=== PATIENT | female | born 1985 | race Two or more races ===

== ENCOUNTER 2019-09-24 15:19 | Emergency (ER) | payer MEDICAID, OTHER ==
[~2019-09-24] VITALS: Ht 152.4 cm; Wt 72.6 kg
[2019-09-24 16:18] LABS: Urine Bacteria FEW /hpf (None Seen); Urine Blood Negative /uL (Negative); Urine Mucus FEW (None Seen); Urine Specific Gravity 1.033 (1.001-1.035); Urine WBC 14 /hpf (0 - 5)
[2019-09-24] MEDS ORDERED: SODIUM CHLORIDE 0.9% 1,000 ML IVB ONE (20:55)
[2019-09-24] MEDS ORDERED: PROMETHAZINE HCL 25 MG/ML 1ML IV ONE (21:00)
[2019-09-24 22:03] LABS: Basophils # (auto) 0 uL; Basophils % (auto) 0.1 % (0.0-2.0); Eosinophils # (auto) 0 uL; Eosinophils % (auto) 0.1 % (0.0-7.0); Hematocrit 41.6 % (36.0-46.0); Hemoglobin 14.2 g/dL (12.2-16.2); Lymphocytes # (auto) 0.7 uL; Lymphocytes % (auto) 9.2 % (10.0-50.0); Mean Corpuscular Hgb Conc. 34.2 g/dL (32.0-36.0); Mean Corpuscular Volume 90.5 fL (80.0-100.0); Monocytes # (auto) 0.4 uL; Monocytes % (auto) 5.1 % (0.0-12.0); Neutrophils # (auto) 6.6 uL; Neutrophils % (auto) 85.5 % (37.0-80.0); Platelet Count (auto) 199 10^3/uL (140-450); Red Cell Distribution Width 13.2 % (11.8-14.3); White Blood Cell 7.8 10^3/uL (4.4-10.8)
[2019-09-24 22:19] LABS: Albumin 3.6 g/dL (3.4-5.0); Calcium 8.7 mg/dL (8.5-10.1); Potassium 3.6 mmol/L (3.5-5.1)
[2019-09-24 22:24] LABS: BUN/Creatinine Ratio 19.2; Bilirubin, Total 0.6 mg/dL (0.2-1.0); Total Protein 7.8 g/dL (6.4-8.2)
[2019-09-25 00:46] VITALS: BP 102/63
== END 2019-09-25 01:35 | disposition home or self-care (01) ==
LOC: ER 15:23
DX: O21.8 Other vomiting complicating pregnancy (principal); O23.41 Unspecified infection of urinary tract in pregnancy, first trimester; E78.5 Hyperlipidemia, unspecified; Z3A.09 9 weeks gestation of pregnancy
CPT/HCPCS: 36415; 76801; 80053; 81001; 84702; 85025; 96361; 96374; 99284; J2550; J7030

== ENCOUNTER 2020-03-13 16:55 | Observation (INO) | payer MEDICAID ==
[2020-03-13] MEDS ORDERED: PRENTAB40 PO (17:20)
[2020-03-13] MEDS: TERBUTALINE SULFATE 1 MG/ML 1ML VIAL SC SCH ×3 (17:50→19:33)
[2020-03-13] MEDS ORDERED: NIFEdipine 10 MG CAP PO ONE (19:30)
== END 2020-03-13 21:15 | disposition home or self-care (01) | DRG 566 ==
LOC: LDRP 16:55
PROVIDERS: ADMIT Obstetrics & Gynecology; ATTEND Obstetrics & Gynecology
DX: O26.893 Other specified pregnancy related conditions, third trimester (principal); M54.9 Dorsalgia, unspecified; R10.30 Lower abdominal pain, unspecified; Z3A.34 34 weeks gestation of pregnancy
CPT/HCPCS: 59025; 76815; 76817; 81002; 94760; 96372; G0378; J3105

== ENCOUNTER 2020-04-14 10:27 | Observation (INO) | payer MEDICAID ==
[~2020-04-14 10:27] MED LIST: PRENTAB40 PO
== END 2020-04-14 11:21 | disposition home or self-care (01) | DRG 566 ==
LOC: LDRP 10:27 → UNDODISOB 10:45
PROVIDERS: ADMIT Specialist; ATTEND Specialist
DX: O26.893 Other specified pregnancy related conditions, third trimester (principal); M79.606 Pain in leg, unspecified; R10.2 Pelvic and perineal pain; Z3A.38 38 weeks gestation of pregnancy
CPT/HCPCS: 59025; 81002; G0378

== ENCOUNTER 2020-04-20 22:41 | Inpatient (IN) | payer MEDICAID ==
[~2020-04-20] VITALS: Ht 157.5 cm; Wt 78.0 kg
[2020-04-20] MEDS ORDERED: LACTATED RINGER'S 1,000 ML IV SCH (22:51)
[2020-04-20] MEDS ORDERED: LACT. RINGERS/OXYTOCIN 20UNITS 1,000 ML IV SCH (22:51)
[2020-04-20] MEDS ORDERED: DERMOPLAST 60ML BOTTLE TOP PRN (23:00)
[2020-04-20] MEDS ORDERED: PHISODERM TOP SOLN 240ML BTL TOP PRN (23:00)
[2020-04-20] MEDS ORDERED: WITCH HAZEL-GLYCERIN PAD TOP PRN (23:00)
[2020-04-20] MEDS ORDERED: LIDOCAINE 1% (LOCAL ANESTH.) PF 5ml SDV IJ ONE (23:00)
[2020-04-20 23:36] LABS: Basophils # (auto) 0 10 ^3/uL (0-0.2); Basophils % (auto) 0.2 % (0.0-2.0); Eosinophils # (auto) 0 10 ^3/uL (0-0.8); Eosinophils % (auto) 0.5 % (0.0-7.0); Hematocrit 39.2 % (36.0-46.0); Hemoglobin 13.2 g/dL (12.2-16.2); Lymphocytes # (auto) 1.5 10 ^3/uL (0.4-5.4); Lymphocytes % (auto) 18.1 % (10.0-50.0); Mean Corpuscular Hemoglobin 31.5 pg (28.0-32.0); Mean Corpuscular Hgb Conc. 33.8 g/dL (32.0-36.0); Mean Corpuscular Volume 93.2 fL (80.0-100.0); Monocytes # (auto) 0.6 10 ^3/uL (0-1.3); Monocytes % (auto) 7.7 % (0.0-12.0); Neutrophils # (auto) 6.2 10 ^3/uL (1.6-8.6); Neutrophils % (auto) 73.5 % (37.0-80.0); Nucleated Red Blood Cells % 0.1 %; Platelet Count (auto) 173 10^3/uL (140-450); Red Cell Distribution Width 13.8 % (11.8-14.3); White Blood Cell 8.4 10^3/uL (4.4-10.8)
[2020-04-20 23:53] LABS: Albumin 2.6 g/dL (3.4-5.0); Calcium 8.2 mg/dL (8.5-10.1); INR 0.95 (0.9-1.15); Partial Thromboplastin Time 28.5 sec (23.64-32.05); Potassium 3.7 mmol/L (3.5-5.1)
[2020-04-20 23:55] LABS: BUN/Creatinine Ratio 13.7
[2020-04-20 23:58] LABS: Bilirubin, Total 0.3 mg/dL (0.2-1.0); Total Protein 7.1 g/dL (6.4-8.2)
[2020-04-21 00:22] LABS: Amphetamine Screen, Urine NEGATIVE (NEGATIVE); Barbiturate Scree,Urine NEGATIVE (NEGATIVE); Benzodiazephine Screen, Urine NEGATIVE (NEGATIVE); Cannabinoid Screen, Urine NEGATIVE (NEGATIVE); Cocaine Screen, Urine NEGATIVE (NEGATIVE); Opiate Scree,Urine NEGATIVE (NEGATIVE); Phencyclidine Screen, Urine NEGATIVE (NEGATIVE)
[2020-04-21 00:26] LABS: Alcohol, Urine < 3.0 mg/dL (0-10)
[2020-04-21] MEDS ORDERED: miSOPROStol 50 MCG per PRE-CUT 1/2 TAB PO PRN (01:15)
[2020-04-21] MEDS ORDERED: miSOPROStol 50 MCG per PRE-CUT 1/2 TAB ONE (01:24)
[2020-04-21] MEDS ORDERED: BUTORPHANOL TARTRATE 2 MG/1 ML VIAL IM PRN (05:15)
[2020-04-21] MEDS ORDERED: BUTORPHANOL TARTRATE 2 MG/1 ML VIAL IV PRN (05:30)
[2020-04-21] MEDS ORDERED: CARBOPROST TROMETHAMINE 250 MCG/1ML VIAL IM ONE (05:56)
[2020-04-21] MEDS ORDERED: METHYLERGONOVINE MALEATE 0.2 MG/ML AMP IM ONE ×2 (05:57→07:30)
[2020-04-21] MEDS ORDERED: miSOPROStol 100 mcg TAB ONE (06:11)
[2020-04-21] MEDS ORDERED: IBUPROFEN 600 MG TAB PO PRN (06:30)
[2020-04-21] MEDS ORDERED: ACETAMINOPHEN 325 MG TAB PO PRN (06:30)
[2020-04-21] MEDS ORDERED: miSOPROStol 50 MCG per PRE-CUT 1/2 TAB PR ONE (06:45)
[2020-04-21] MEDS ORDERED: miSOPROStol 50 MCG per PRE-CUT 1/2 TAB SL ONE (06:45)
[2020-04-21] MEDS ORDERED: LACT. RINGERS/OXYTOCIN 20UNITS 500 ML IV ONE (07:18)
[2020-04-21] MEDS ORDERED: ceFAZolin 1GM/50ML 50 ML IV SCH (08:00)
[2020-04-21 08:14] VITALS: BP 127/69
--- NOTE | 2020-04-21 08:14 | NUR ---
Ambulation: Patient OOB with standby assistance by RN. Patient ambulated to bathroom with steady gait. Patient able to void 600ml without difficulty. Pericare teaching provided with returned demonstration by patient. Clean gown provided and bed linen changed. Patient ambulated back to bed with steady gait and no distress noted.
[2020-04-21] MEDS ORDERED: LACT. RINGERS/OXYTOCIN 20UNITS 1,000 ML IV SCH (08:18)
[2020-04-21 11:30] VITALS: BP 122/76
--- NOTE | 2020-04-21 11:30 | NUR ---
Dr. Denton called by this RN and informed of small- moderate amount of bleeding noted after delivery, with a slight trickle of blood only noted upon fundal rub, then immediately stops. VS Stable. Orders received to D/C Oxytocin at this time.
[2020-04-21 14:57] VITALS: BP 122/67
[2020-04-21] MEDS: ceFAZolin 1GM/50ML 50 ML IV SCH ×2 (15:36→23:30)
--- NOTE | 2020-04-21 18:10 | NUR ---
Report given to Sheldon MCCLELLAN RN on stable pt. Relinquished care. Addendum: 04/21/20 at 1814 by Yoko Pack RN Amended: Links added.
[2020-04-21 18:45] VITALS: BP 122/71
[2020-04-21 23:00] VITALS: BP 123/75
[2020-04-22] MEDS ORDERED: TETANUS-DIPTH-ACEL PERTUSSIS 0.5ML SYR Tdap IM ONE (00:45)
--- NOTE | 2020-04-22 02:00 | NUR ---
IV removal 20g IV to right forearm DC'd with clean sterile technique, catheter fully intact. Pressure dressing applied to site. Patient tolerated well.
[2020-04-22 03:10] VITALS: BP 120/73
[2020-04-22] MEDS: ceFAZolin 1GM/50ML 50 ML IV SCH (03:19)
[2020-04-22 07:00] VITALS: BP 125/71
[2020-04-22 10:30] VITALS: BP 116/70
--- NOTE | 2020-04-22 10:30 | NUR ---
Discharge: Discharge instructions given as ordered. Pt encouraged to follow up with [facility] TE[facility] as instructed. All questions and concerns addressed. Patient verbalized understanding. Medication reconciliation completed and copy given to patient. All required/requested vaccines given and copies of vaccinations given to patient. Patient encouraged to prepare to depart unit. D/C instructions provided via [facility] ID# [id number]
--- NOTE | 2020-04-22 10:57 | NUR ---
Discharge: Patient taken to vehicle via wheelchair with all personal belongings, accompanied by staff and family member. No distress noted at time of departure, no adverse changes in status since initial assessment.
[2020-05-13 12:28] LABS: RPR Non Reactive (Non Reactive)
== END 2020-04-22 10:57 | disposition home or self-care (01) | DRG 560 ==
LOC: LDRP 22:41
PROVIDERS: ADMIT Obstetrics & Gynecology; ATTEND Obstetrics & Gynecology
PROC: 10E0XZZ Delivery of Products of Conception, External Approach (ICD-10-PCS; principal; 2020-04-21)
PROC: 3E033VJ Introduction of Other Hormone into Peripheral Vein, Percutaneous Approach (ICD-10-PCS; 2020-04-21)
DX: O41.03X0 Oligohydramnios, third trimester, not applicable or unspecified (principal); Z11.59 Encounter for screening for other viral diseases; Z23 Encounter for immunization; Z37.0 Single live birth; Z3A.39 39 weeks gestation of pregnancy
CPT/HCPCS: 36415; 59025; 59409; 80053; 80307; 84112; 85025; 85610; 85730; 86592; 86850; 86900; 86901; 90715; 96365; 96366; 96372; G0378; J0690; J2590